=== PATIENT | female | born 1960 | race Caucasian/White ===

== ENCOUNTER 2024-03-14 06:25 | Day surgery (SDC) | payer BC ==
[~2024-03-14 06:25] MED LIST: LIDOCAINE 1% (10MG/ML) FOR IV START INTRADERMA PRN; ONDANSETRON 4 MG/2 ML VIAL IVP PRN; fentaNYL (PF) 50 MCG/ML 2 ML AMP IV PRN
[2024-03-14] MEDS: SODIUM CHLORIDE 0.9% 1,000 ML IV ONE (06:40)
[2024-03-14 07:19] LABS: Basophils # (A) 0.1 k/uL (0-0.2); Basophils % (A) 1 %; Eosinophils # (A) 0.3 k/uL (0-0.7); Eosinophils % (A) 5 %; HCT 39.9 % (34.0-46.0); HGB 13.1 gm/dL (11.4-16.0); Lymphocytes # (A) 2.1 k/uL (1.0-4.8); Lymphocytes % (A) 28 %; MCH 29.1 pg (25.0-35.0); MCHC 32.9 g/dL (31.0-37.0); MCV 88.5 fL (80.0-100.0); Mean Platelet Volume 8.4; Monocytes # (A) 0.5 k/uL (0-1.0); Monocytes % (A) 6 %; Neutrophils # (A) 4.2 k/uL (1.3-7.7); Neutrophils % (A) 57 %; Platelet Count 253 k/uL (150-450); RBC 4.51 m/uL (3.80-5.40); WBC 7.3 k/uL (3.8-10.6)
[2024-03-14 07:21] LABS: African American GFR (CKD) >90 (>60 ml/min/1.73 sqM); Blood Urea Nitrogen 18 mg/dL (7-17); Calcium 9.1 mg/dL (8.4-10.2); Carbon Dioxide 25 mmol/L (22-30); Chloride 111 mmol/L (98-107); Glucose 97 mg/dL (74-99); Non-African American GFR(CKD) >90 (>60 ml/min/1.73 sqM); Potassium 4.3 mmol/L (3.5-5.1)
[2024-03-14] MEDS ORDERED: MIDAZOLAM 2 MG/2 ML VIAL ONE (07:21)
[2024-03-14] MEDS ORDERED: DEXAMETHASONE SOD PHOSPHATE 4 MG/ML 1 ML VIAL ONE (07:21)
[2024-03-14] MEDS ORDERED: fentaNYL (PF) 50 MCG/ML 2 ML AMP ONE (07:21)
[2024-03-14] MEDS ORDERED: SUCCINYLCHOLINE CHLORIDE 200 MG/10 ML VIAL IV ONE (07:21)
[2024-03-14] MEDS ORDERED: LIDOCAINE 1% INJ 10MG/ML (20 ML MDV) ONE ×2 (07:21→07:41)
[2024-03-14] MEDS ORDERED: HEPARIN SODIUM,PORCINE 10,000 UNIT/ML 1 ML VIAL ONE (07:21)
[2024-03-14] MEDS ORDERED: PROPOFOL 10 MG/ML 20 ML VIAL IV ONE (07:21)
[2024-03-14] MEDS ORDERED: ONDANSETRON 4 MG/2 ML VIAL ONE (07:21)
[2024-03-14] MEDS ORDERED: ePHEDrine 50 MG/ML 1 ML VIAL ONE (07:21)
[2024-03-14 07:24] LABS: Anion Gap 5 mmol/L; Sodium 141 mmol/L (137-145)
[2024-03-14] MEDS: HEPARIN SOD,PORK IN 0.45% NACL 25,000 UNIT in 0.45% NACL 1 250ML.BAG IV ONE ×2 (07:34)
[2024-03-14] MEDS: LIDOCAINE 1% INJ 10MG/ML (20 ML MDV) SQ ONE (07:59)
[2024-03-14] MEDS: SODIUM CHLORIDE 0.9% 500 ML 500 ML IV ONE (09:51)
[2024-03-14] MEDS: IOPAMIDOL-370 100ML BTL INJ ONE (09:54)
--- NOTE | 2024-03-14 10:11 | P.HPCAR ---
History of Present Illness This is Dr. Bhakta dictating an H/P on this patient The patient was interviewed and examined IMPRESSION / ASSESSMENT: Paroxysmal atrial fibrillation, very symptomatic despite medications, with RVR greater than 200 beats a minute Shortness of breath with average activities PLAN: EP study and ablation for atrial fibrillation HPI Patient continues to have recurrent episodes of palpitations with RVR. These are associated with a tightening sensation in the throat as well as warmth She is short of breath with average activities No loss of consciousness ROS: No fever chills or rigors, no cough, phlegm or expectoration, no nausea, vomiting or diarrhea, no hematuria, dysuria, no musculoskeletal complaints, no strokes or seizures, no skin lesions. EXAMINATION: Pulse rate in the 50s at rest blood pressure 132/64 mmHg afebrile Breath sounds are clear no rhonchi no crackles Heart sounds S1-S2 normal Breath sounds no rhonchi no crackles Abdomen soft nontender No lower extremity edema REVIEW OF LABS, ECG & MEDICAL DATA Hemoglobin normal 13.1 Normal platelet count 253,000 Sodium 141 potassium 4.3 BUN 18 and creatinine 0.7 Physical Exam Vitals: Vital Signs Temp Pulse Resp BP Pulse Ox 03/14/24 06:53 98.1 F 51 L 16 132/64 97 Intake and Output 03/13/24 03/14/24 03/14/24 22:59 06:59 14:59 Intake Total 50 970 Balance 50 970 Intake: IV 50 970 Other: Weight 75.8 kg Past Medical History Past Medical History: Atrial Fibrillation, Hyperlipidemia, Hypertension, Osteoarthritis (OA), Sleep Apnea/CPAP/BIPAP Additional Past Medical History / Comment(s): see Dr Bhakta H & P, doesn't use CPAP History of Any Multi-Drug Resistant Organisms: None Reported Past Surgical History: Back Surgery, Heart Catheterization, Hysterectomy, Orthopedic Surgery Additional Past Surgical History / Comment(s): left foot surg. w/pins & plate Past Anesthesia/Blood Transfusion Reactions: Postoperative Nausea & Vomiting (PONV) Smoking Status: Former smoker - Past Family History Father Family Medical History: CVA/TIA Mother Family Medical History: Myocardial Infarction ([place]) Sister(s) Family Medical History: CVA/TIA Brother(s) Family Medical History: CVA/TIA Physical Examination Vital Signs Temp Pulse Resp BP Pulse Ox 03/14/24 06:53 98.1 F 51 L 16 132/64 97 Intake and Output 03/13/24 03/14/24 03/14/24 22:59 06:59 14:59 Intake Total 50 970 Balance 50 970 Intake: IV 50 970 Other: Weight 75.8 kg Results 03/14/24 06:37 03/14/24 06:00 CBC 03/14/24 Range/Units 06:37 WBC 7.3 (3.8-10.6) k/uL RBC 4.51 (3.80-5.40) m/uL Hgb 13.1 (11.4-16.0) gm/dL Hct 39.9 (34.0-46.0) % Plt Count 253 (150-450) k/uL Comprehensive Metabolic Panel 03/14/24 Range/Units 06:00 Sodium 141 (137-145) mmol/L Potassium 4.3 (3.5-5.1) mmol/L Chloride 111 H (98-107) mmol/L Carbon Dioxide 25 (22-30) mmol/L BUN 18 H (7-17) mg/dL Creatinine 0.70 (0.52-1.04) mg/dL Glucose 97 (74-99) mg/dL Calcium 9.1 (8.4-10.2) mg/dL Current Medications Generic Name Dose Route Start Last Admin Trade Name Freq PRN Reason Stop Dose Admin Acetaminophen 650 mg 03/14/24 18:00 Acetaminophen Tab 325 Mg Tab PO 04/13/24 18:01 Q6HR PRN Mild Pain (Scale 1 to 3) Aspirin 81 mg 03/15/24 09:00 Aspirin 81 Mg PO 04/14/24 09:01 DAILY YAMILETH Fentanyl Citrate 50 mcg 03/14/24 05:58 Fentanyl (Pf) 50 Mcg/Ml 2 Ml Amp IV 03/15/24 05:59 Q3M PRN Phase I - Pain Control Gabapentin 400 mg 03/14/24 21:00 Gabapentin 400 Mg Cap PO 04/13/24 21:01 HS YAMILETH Sodium Chloride 1,000 mls @ 50 mls/hr 03/14/24 05:58 Saline 0.9% IV 04/13/24 05:59 .Q20H YAMILETH Lactated Ringer's 1,000 mls @ 20 mls/hr 03/14/24 05:58 Lactated Ringers IV 04/13/24 05:59 .Q24H [facility] Acetaminophen 1,000 mg/ IV 100 mls @ 400 mls/hr 03/14/24 10:02 Solution IVPB 03/14/24 10:16 ONCE ONE Lidocaine HCl 0.1 ml 03/14/24 05:58 Lidocaine 1% (10mg/Ml) For Iv Start INTRADERMA 04/13/24 05:59 PER PROTOCOL PRN IV Start Metoprolol Succinate 50 mg 03/15/24 09:00 Metoprolol Succinate (Er) 50 Mg Tab.Er.24h PO 04/14/24 09:01 DAILY [facility] Non-Formulary Medication 20 mg 03/14/24 21:00 Lovastatin PO 04/13/24 21:01 [facility] Ondansetron HCl 4 mg 03/14/24 05:58 Ondansetron 4 Mg/2 Ml Vial IVP 03/15/24 05:59 ONCE PRN Phase 1 or 2 - Nausea/Vomiting Rivaroxaban 20 mg 03/14/24 21:00 Rivaroxaban 20 Mg Tab PO 04/13/24 21:01 [facility] Protocol Sertraline HCl 50 mg 03/15/24 09:00 Sertraline 50 Mg Tab PO 04/14/24 09:01 DAILY [facility] Sodium Chloride 12 ml 03/14/24 10:02 Sodium Chloride 0.9% Flush 10 Ml Syringe IV 04/13/24 10:03 Q12HR PRN Line Flush Intake and Output 03/13/24 03/14/24 03/14/24 22:59 06:59 14:59 Intake Total 50 970 Balance 50 970 Intake: IV 50 970 Other: Weight 75.8 kg 03/14/24 06:37 03/14/24 06:00
--- NOTE | 2024-03-14 10:17 | P.EPPROC ---
- EP Procedure Note Electrophysiology Procedure Note: PROCEDURE A. fib ablation with pulmonary vein isolation and left atrial roof ablation DIAGNOSIS Paroxysmal atrial fibrillation, symptomatic, refractory to therapy Shortness of breath on exertion RESULT No left atrial appendage mass seen on intracardiac echo, large left atrial appendage Mild thickening of the pericardium Elevated RA and LA pressures during sinus rhythm Successful A. fib ablation/pulmonary vein isolation of all veins using cryo- ablation Complete entrance block in all 4 veins confirmed No evidence for phrenic nerve injury Left atrial roof ablation Esophageal deflection YES, left-sided esophagus PROCEDURE DETAILS Written informed consent prior to procedure. Patient brought to the EP lab. General anesthesia given. Heparin administered. A city maintained above 300 seconds Both groins prepped and draped per protocol and venous sheaths placed. Esophagus intubated, circa catheter for temperature monitoring an endoscope for possible esophageal deflection. Phrenic nerve monitoring performed. Esophageal temperature monitoring performed. Esophageal deflection performed if circa catheter overlapping with the balloon or circa temperature less than 27.5C Intracardiac echocardiography performed. Pericardium evaluated. Left atrial appendage evaluated. Left atrium evaluated along with pulmonary veins Transseptal catheterization performed under fluoroscopic guidance and intracardiac echo guidance Cryoablation sheath exchanged, balloon catheter along with achieve catheter placed in the left atrium. Pulmonary veins isolated in the following sequence: Left superior pulmonary vein followed by left inferior pulmonary vein, followed by right inferior pulmonary vein and lastly right superior pulmonary vein. Phrenic nerve stimulation along with capture thresholds within the SVC and right superior pulmonary vein to identify the phrenic nerve proximity to the cryo- balloon. Pulmonary veins isolated and confirmed with entrance and exit block. Phrenic nerve integrity confirmed at the end of the procedure Ablation of the left atrial roof performed with sequential lesions from the left superior to the right superior pulmonary veins. Ablation of the electrograms confirmed Diagnostic catheters for the high right atrium, His bundle, coronary sinus [place]. LA and RA pressures recorded RA pressure: 17/07/13 LA pressure: 27/07/15 Diagnostic EP study with coronary sinus pacing and recording Baseline measurements: Sinus cycle length 1363, FL interval 133 ms QRS 88 ms, QT 470 ms AH 114 ms and HV interval 36 ms Sinus node recovery times at 600, 500 and, 400 ms were 1567, 1355 and 1018 ms. Burst stimulation in the high right atrium from 400 ms down to 230 ms. No atrial fibrillation induced Atrial extra stimulation from the high right atrium 400/320 ms, no inducible atrial fibrillation High-dose Isopril employed Both stimulation from the coronary sinus from 400 ms down to 200 ms, no atrial fibrillation induced Atrium extrastimulation, 400/less than 200/less than 200 ms Venous sheaths were removed and hemostasis assured with a closure device. Patient extubated and transferred to recovery Increase procedural time During ablation multiple attempts had to be made to move the esophagus a safe distance of the from the pulmonary vein draining cryoablation, to avoid excessive thermal cooling of the esophagus This took extra time and effort to keep the esophagus a safe distance away from the cryoablation balloon. Unusual anatomy of the right inferior and right superior pulmonary veins requiring multiple manipulations and attempts for good occlusion of the veins. Excellent occlusion obtained at the end with complete isolation but multiple attempts needed for successful occlusion of the pulmonary veins requiring extra time PROCEDURES PERFORMED Diagnostic EP study CS pacing and recording Left and right transseptal catheterization Catheter the mapping of the tachycardia Intracardiac echocardiography Pulmonary vein isolation with transseptal and comprehensive EPS, [id number] Extended procedure duration Drug infusion, +[id number] Left atrial roof line, +[id number]
--- NOTE | 2024-03-14 10:19 | P.DS ---
Providers Attending physician: John Bhakta Primary care physician: Katalina Shabazz MD Hospital Course: Dear Katalina Grier underwent successful A-fib ablation with pulmonary vein isolation as well as left atrial roof ablation Her left and right atrial mean pressures ranged from 13 to 15 mmHg and she does complain of shortness of breath on exertion even when she is in sinus rhythm Sinus node and AV node function were fairly normal I would recommend keeping a close eye on her home blood pressure readings as well as assessment for obstructive sleep apnea Thank you for entrusting me with the care of the patient Warm regards Sincerely John Bhakta Patient Condition at Discharge: Stable Plan - Discharge Summary Discharge Rx Participant: No New Discharge Prescriptions: No Action Metoprolol Succinate (ER) [Toprol Xl] 75 mg PO DAILY Lovastatin [Mevacor] 20 mg PO HS Sertraline [Zoloft] 50 mg PO DAILY Gabapentin [Neurontin] 400 mg PO HS Aspirin 81 mg PO DAILY Rivaroxaban [Xarelto] 20 mg PO HS Discharge Medication List Aspirin 81 mg PO DAILY 03/10/24 [History] Gabapentin [Neurontin] 400 mg PO HS 03/10/24 [History] Lovastatin [Mevacor] 20 mg PO HS 03/10/24 [History] Metoprolol Succinate (ER) [Toprol Xl] 75 mg PO DAILY 03/10/24 [History] Rivaroxaban [Xarelto] 20 mg PO HS 03/10/24 [History] Sertraline [Zoloft] 50 mg PO DAILY 03/10/24 [History] Follow up Appointment(s)/Referral(s): John Bhakta MD [STAFF PHYSICIAN] - 1 Week (APPT ON 03/24/24 AT 9AM)
[2024-03-14] MEDS: ACETAMINOPHEN TAB 325 MG TAB PO PRN (15:23)
[2024-03-14] MEDS: DEXAMETHASONE SOD PHOSPHATE 4 MG/ML 1 ML VIAL IV ONE (16:16)
[2024-03-14] MEDS: LACTATED RINGERS 1,000 ML IV SCH (16:16)
[2024-03-14] MEDS: ONDANSETRON 4 MG/2 ML VIAL IVP ONE (16:17)
[2024-03-14] MEDS: ACETAMINOPHEN IV (For NPO) 1,000 MG in EMPTY BAG 1 BAG IVPB ONE (16:17)
[2024-03-14] MEDS: SODIUM CHLORIDE 0.9% 1,000 ML IV SCH (16:17)
[2024-03-14] MEDS: GABAPENTIN 400 MG CAP PO SCH (21:53)
[2024-03-14] MEDS: ATORVASTATIN 10 MG TAB PO SCH (21:53)
[2024-03-14] MEDS: RIVAROXABAN 20 MG TAB PO SCH (21:53)
[2024-03-15] MEDS: COLCHICINE 0.6 MG EACH PO STA (08:22)
[2024-03-15] MEDS: SERTRALINE 50 MG TAB PO SCH (08:22)
[2024-03-15 08:23] VITALS: BP 122/73; PULSE 70; RESP 18; TEMP 98.3
[2024-03-15] MEDS: ASPIRIN 81 MG PO SCH (08:23)
[2024-03-15] MEDS: METOPROLOL SUCCINATE (ER) 50 MG TAB.ER.24H PO SCH (08:23)
--- NOTE | 2024-03-15 15:31 | P.DS ---
Providers Attending physician: John Bhakta Primary care physician: Katalina Shabazz MD Hospital Course: Patient is resting comfortably in bed she has walked around in the room She denies any dizziness or lightheadedness. She has a dull ache in the chest On examination no rub no gallop no murmurs Regular rhythm Twelve-lead EKG was normal On examination clear lungs no rhonchi no crackles Blood pressure 122/73 mmHg pulse rate in the 70s, afebrile Impression paroxysmal atrial fibrillation with RVR, symptomatic Left atrial enlargement Obstructive sleep apnea, not using CPAP mask Plan Incentive spirometry Continue anticoagulation for minimum of at least 3 months Home blood pressure monitoring Treatment of sleep apnea emphasized Minimize alcohol use Discharge home today continue current medications. Metoprolol dose is being decreased to 50 mg p.o. daily Low-salt diet Patient Condition at Discharge: Stable Plan - Discharge Summary Discharge Rx Participant: No New Discharge Prescriptions: New Metoprolol Succinate [Toprol XL] 50 mg PO DAILY #90 tab Discontinued Metoprolol Succinate (ER) [Toprol Xl] 75 mg PO DAILY No Action Lovastatin [Mevacor] 20 mg PO HS Sertraline [Zoloft] 50 mg PO DAILY Gabapentin [Neurontin] 400 mg PO HS Aspirin 81 mg PO DAILY Rivaroxaban [Xarelto] 20 mg PO HS Discharge Medication List Aspirin 81 mg PO DAILY 03/10/24 [History] Gabapentin [Neurontin] 400 mg PO HS 03/10/24 [History] Lovastatin [Mevacor] 20 mg PO HS 03/10/24 [History] Rivaroxaban [Xarelto] 20 mg PO HS 03/10/24 [History] Sertraline [Zoloft] 50 mg PO DAILY 03/10/24 [History] Metoprolol Succinate [Toprol XL] 50 mg PO DAILY #90 tab 03/14/24 [Rx] Follow up Appointment(s)/Referral(s): John Bhakta MD [STAFF PHYSICIAN] - 1 Week (APPT ON 03/24/24 AT 9AM) Patient Instructions/Handouts: Electrophysiology Study (DC) Activity/Diet/Wound Care/Special Instructions: Post EP study - Ablation instructions 1. Keep access sites dry for 2 days. 2. No heavy lifting or straining for 3 days. 3. Avoid bending the hips repeatedly for 2 days. 4. You may go up and down stairs slowly Call if the following is noted 1. Bleeding, increasing swelling or pain at the access sites. 2. Increasing chest discomfort, especially upon taking a deep breath. 3. Increasing shortness of breath, at rest or with exertion. 4. Undue cough / phlegm 5. Difficulty or pain while swallowing. 6. Pain or change in color in the extremities. 7. Fever, chills, rigors. 8. Increasing headache or neurologic symptoms. 9. Dizziness, fainting, palpitations May return to work on Thursday Reduce metoprolol to 50 mg p.o. daily Continue Xarelto 20 mg p.o. daily for 3 months, then stop Low-salt diet Discharge Disposition: HOME SELF-CARE
== END 2024-03-15 11:45 | disposition home or self-care (01) ==
LOC: CATHEP 06:25 → 6NMEDSUR 12:47 → CATHEP 03-15 11:45
PROVIDERS: ATTEND Internal Medicine Clinical Cardiac Electrophysiology
DX: I48.0 Paroxysmal atrial fibrillation (principal); I10 Essential (primary) hypertension; E78.5 Hyperlipidemia, unspecified; M19.90 Unspecified osteoarthritis, unspecified site; G47.33 Obstructive sleep apnea (adult) (pediatric); Z90.710 Acquired absence of both cervix and uterus; Z87.891 Personal history of nicotine dependence; Z82.3 Family history of stroke; Z82.49 Family history of ischemic heart disease and other diseases of the circulatory system; Z79.82 Long term (current) use of aspirin; Z79.899 Other long term (current) drug therapy
CPT/HCPCS: 93623; 93656; 93657; 86900; 86901; 80048; 85025; 86850; C1894 ×2; C1769 ×3; C1760 ×2; C1730 ×2; C1759; C1893; C1733; C1766; J2250; J0330; J1644 ×2; J1100; J2405; J2001; J3010; J2704; Q9967